=== PATIENT | male | born 1955 | race Caucasian/White ===

== ENCOUNTER 2017-02-01 14:50 | Emergency (ER) | payer OTHER ==
[~2017-02-01] VITALS: Ht 172.7 cm; Wt 99.2 kg
[2017-02-01 15:55] LABS: ADD MIUA? YES; BILIRUBIN NEGATIVE; BLOOD NEGATIVE; COLOR AMBER ((YELLOW)); GLUCOSE (STRIP) 150; KETONES 5; LEUKOCYTES NEGATIVE; NITRITE NEGATIVE; PROTEIN (STRIP) 30; UROBILINOGEN 0.2 MG/DL (0.2-1.0)
[2017-02-01 15:58] LABS: BACTERIA NONE SEEN /HPF; EPITHELIAL CELLS NONE SEEN /HPF; MUCUS TRACE /LPF; RED BLOOD CELLS 0-5 /HPF (0-5); WHITE BLOOD CELLS 0-5 /HPF (0-5)
[2017-02-01] MEDS ORDERED: PERCOCET 7.51 TABLET PO (16:57)
[2017-02-01] MEDS ORDERED: SKELAXIN800 MG PO (16:57)
[2017-02-01] MEDS ORDERED: ZOCOR20 MG PO (17:08)
[2017-02-01] MEDS ORDERED: ASPIRIN81 M2 PO (17:08)
[2017-02-01] MEDS ORDERED: GLUCOPHAGE1000 MG PO (17:09)
[2017-02-01] MEDS ORDERED: DIABETA5 MG PO (17:09)
[2017-02-01] MEDS ORDERED: NORVASC10 MG PO (17:09)
[2017-02-01] MEDS ORDERED: LISINOPRIL40 MG PO (17:09)
[2017-02-01] MEDS ORDERED: LYRICA75 MG PO (17:10)
[2017-02-01 18:28] VITALS: BP 115/67
== END 2017-02-01 18:29 | disposition home or self-care (01) ==
LOC: EME 14:50
PROVIDERS: Physician Assistant
DX: M54.42 Lumbago with sciatica, left side (principal); M54.41 Lumbago with sciatica, right side
CPT/HCPCS: 72131; 81003; 99281; 99283; J3010; J3360